=== PATIENT | male | born 1985 | race Caucasian/White ===

== ENCOUNTER → 2023-05-23 | Outpatient (CLI) | payer OTHER ==
[2023-05-23 11:13] LABS: HEMATOCRIT 44.3 % (42.0-52.0); HEMOGLOBIN 15.9 g/dl (13.5-17.5); MEAN CORPUSCULAR HEMOGLOBIN 32.3 pg (27.0-33.0); MEAN CORPUSCULAR HGB CONC 35.9 g/dl (32.0-36.5); PLATELET COUNT, AUTOMATED 201 10^3/uL (150-450); RED BLOOD COUNT 4.92 10^6/uL (4.30-6.10); WHITE BLOOD COUNT 4.7 10^3/uL (4.0-10.0)
[2023-05-23 11:39] LABS: ALBUMIN 4.5 G/DL (3.2-5.2); ALKALINE PHOSPHATASE 61 U/L (46-116); ALT/SGPT 77 U/L (7.0-40); AST/SGOT 57 U/L (<34); BILIRUBIN,DIRECT 0.1 MG/DL (<0.4); BILIRUBIN,TOTAL 0.5 MG/DL (0.3-1.2); BLOOD UREA NITROGEN 13 MG/DL (9-23); CALCIUM LEVEL 9.4 MG/DL (8.5-10.1); CARBON DIOXIDE LEVEL 29 MMOL/L (20-31); CHLORIDE LEVEL 103 MMOL/L (98-107); CREATININE FOR GFR 1.02 MG/DL (0.70-1.30); GLOMERULAR FILTRATION RATE > 60.0 (>60); GLUCOSE, FASTING 93 MG/DL (60-100); POTASSIUM SERUM 4.4 MMOL/L (3.5-5.1); SODIUM LEVEL 141 MMOL/L (136-145); TOTAL PROTEIN 6.9 G/DL (5.7-8.2)
[2023-05-23 11:40] LABS: FREE T4 1.16 NG/DL (0.89-1.76); LUTEINIZING HORMONE 1.4 mIU/ML (1.5-9.3); PROLACTIN 4.08 NG/ML (2.1-17.7)
[2023-05-23 11:41] LABS: ESTRADIOL 22.1 PG/ML (<39.8); FOLLICLE STIMULATING HORMONE 1.6 mIU/ML (1.4-18.1); THYROID STIMULATING HORMONE 1.092 uIU/ML (0.55-4.78)
[2023-05-24 16:09] LABS: HCG SERUM TUMOR MARKER QUANT < 1 mIU/mL (0-3); TESTOSTERONE FREE (DIRECT) 7.8 pg/mL (8.7-25.1)
== END ==
LOC: M LAB 10:08
PROVIDERS: ATTEND Plastic Surgery Surgery of the Hand
DX: N62 Hypertrophy of breast (principal)

== ENCOUNTER 2023-06-05 10:58 | Day surgery (SDC) | payer OTHER ==
[~2023-06-05] VITALS: Ht 180.3 cm; Wt 87.1 kg
[~2023-06-05 10:58] MED LIST: DOXE25CA PO; FEXO60TA99 PO; HYDR50TA70 PO; LEXA1TAB PO; LEXA5TAB13 PO; NS 1,000 ML IV ONE; PROT1TAB2 PO
[2023-06-05] MEDS ORDERED: propofoL 200 MG/20 ML VIAL As Ordered ONE ×2 (13:04→13:16)
[2023-06-05] MEDS ORDERED: fentaNYL 100 MCG/2 ML INJECTION As Ordered ONE (13:04)
[2023-06-05] MEDS ORDERED: LIDOCAINE 2% 100MG/5ML SDV (FOR ANES.) As Ordered ONE (13:04)
[2023-06-05 13:40] VITALS: BP 130/94; O2SAT 97
== END 2023-06-05 13:50 | disposition home or self-care (01) ==
LOC: M OPP 10:58
PROVIDERS: ATTEND Internal Medicine Gastroenterology
DX: R13.10 Dysphagia, unspecified (principal); K22.89 Other specified disease of esophagus; K21.9 Gastro-esophageal reflux disease without esophagitis; Z79.899 Other long term (current) drug therapy
CPT/HCPCS: 43249; J3010

== ENCOUNTER → 2023-06-11 | Outpatient (CLI) | payer OTHER ==
[~2023-06-11] MED LIST changes: -NS 1,000 ML IV ONE
== END ==
LOC: M WHC 13:20
PROVIDERS: ATTEND Physician Assistant
DX: N62 Hypertrophy of breast (principal)

== ENCOUNTER 2023-11-05 08:06 | Observation (INO) | payer OTHER ==
[~2023-11-05] VITALS: Ht 180.3 cm; Wt 87.7 kg
[~2023-11-05 08:06] MED LIST changes: +LEXA1TAB2 PO; +LIDOCAINE 2% 100MG/5ML SDV (FOR ANES.) As Ordered ONE; +MIDAZOLAM INJ 2MG/2ML VIAL As Ordered ONE; +ONDANSETRON 4MG 2ML VIAL As Ordered ONE; +ROCURONIUM BROMIDE 50MG/5ML VIAL As Ordered ONE; +SUGAMMADEX SODIUM 500 MG/5 ML VIAL (BRIDION) As Ordered ONE; +fentaNYL 250 MCG/5 ML INJECTION As Ordered ONE; +propofoL 200 MG/20 ML VIAL As Ordered ONE
[2023-11-05] MEDS ORDERED: LR 1,000 ML IV SCH (08:10)
[2023-11-05] MEDS: EPINEPHrine 1MG/10ML SYRINGE 1.5IN As Ordered ONE (09:05)
[2023-11-05] MEDS ORDERED: dexmedeTOMIDine (4MCG/ML)200MCG/50ML BTL (PRECEDEX) As Ordered ONE (09:18)
[2023-11-05] MEDS ORDERED: ACETAMINOPHEN 1000MG 100ML IV BAG As Ordered ONE (09:47)
[2023-11-05] MEDS ORDERED: HYDROmorphone HCL 2MG/ML 1ML VIAL As Ordered ONE (10:06)
[2023-11-05] MEDS: ceFAZolin SOD 2 GM in IV 1 EA IV ONE (10:20)
[2023-11-05] MEDS: LIDOCAINE W/EPINEPHRINE 1% 20ML VIAL As Ordered ONE (10:39)
[2023-11-05] MEDS: GENTAMICIN SULF 80MG/2ML VIAL As Ordered ONE (10:39)
[2023-11-05] MEDS: EPINEPHrine INJ 1 MG/ML 1ML AMP As Ordered ONE (10:40)
[2023-11-05] MEDS: LIDOCAINE 1% MDV 20ML VIAL As Ordered ONE (10:40)
[2023-11-05] MEDS ORDERED: ONDANSETRON 4MG 2ML VIAL IV PRN ×2 (12:15→12:40)
[2023-11-05] MEDS ORDERED: HYDROMORPHONE HCL 0.5 MG/ 0.5 ML SYRINGE IV PRN (12:15)
[2023-11-05] MEDS ORDERED: fentaNYL 100 MCG/2 ML INJECTION IV PRN (12:15)
[2023-11-05] MEDS ORDERED: oxyCODONE 5MG TAB PO PRN (12:15)
[2023-11-05] MEDS: LR 1,000 ML IV SCH ×2 (12:15→17:55)
[2023-11-05] MEDS ORDERED: ACETAMINOPHEN TAB 650MG DOSE (2X325MG) PO PRN (12:40)
[2023-11-05] MEDS ORDERED: PERCOCET 5MG/325MG TAB PO PRN (12:40)
[2023-11-05 15:30] VITALS: BP 141/86; TEMP 97.5; O2SAT 97
[2023-11-05] MEDS: traMADol 50 MG TAB PO PRN (15:50)
[2023-11-05 16:30] VITALS: BP 136/84; TEMP 97.5; O2SAT 97
[2023-11-05 17:42] VITALS: BP 146/86; TEMP 97.5; O2SAT 96
[2023-11-05] MEDS: ceFAZolin SOD 1 GM in D5W MINI-BAG PLUS 50 ML IV SCH (17:55)
[2023-11-05 18:30] VITALS: BP 143/87; TEMP 97.5; O2SAT 96
[2023-11-05] MEDS: PANTOPRAZOLE 40MG TAB (PROTONIX) PO SCH (20:02)
[2023-11-05 20:30] VITALS: BP 136/82; TEMP 97.5; O2SAT 94
[2023-11-05 21:30] VITALS: BP 134/81; TEMP 97.5; O2SAT 95
[2023-11-06 01:30] VITALS: BP 134/81; TEMP 97.5; O2SAT 95
[2023-11-06 05:30] VITALS: BP 142/79; TEMP 97.5; O2SAT 94
[2023-11-06] MEDS: FEXOFENADINE 60MG TAB PO SCH (09:00)
[2023-11-06] MEDS ORDERED: TRAM50TA2 PO (11:58)
== END 2023-11-06 13:45 | disposition home or self-care (01) ==
LOC: M SDC 08:06 → M MS5PR 12:19
PROVIDERS: ADMIT Plastic Surgery Surgery of the Hand; ATTEND Plastic Surgery Surgery of the Hand
DX: N62 Hypertrophy of breast (principal); F41.9 Anxiety disorder, unspecified; F32.A Depression, unspecified; F43.10 Post-traumatic stress disorder, unspecified; K21.9 Gastro-esophageal reflux disease without esophagitis; M54.9 Dorsalgia, unspecified; Z79.899 Other long term (current) drug therapy
CPT/HCPCS: 19300; 88300; 88305; 96374; 96376; J0131; J0171; J0690; J1100; J1170; J1580; J2250; J2405; J3010

== ENCOUNTER 2024-06-10 12:04 | Day surgery (SDC) | payer OTHER ==
[~2024-06-10] VITALS: Ht 182.9 cm; Wt 86.1 kg
[~2024-06-10 12:04] MED LIST changes: -LIDOCAINE 2% 100MG/5ML SDV (FOR ANES.) As Ordered ONE; -MIDAZOLAM INJ 2MG/2ML VIAL As Ordered ONE; -ONDANSETRON 4MG 2ML VIAL As Ordered ONE; -ROCURONIUM BROMIDE 50MG/5ML VIAL As Ordered ONE; -SUGAMMADEX SODIUM 500 MG/5 ML VIAL (BRIDION) As Ordered ONE; +TEST200I14; +TRAM50TA2 PO; -fentaNYL 250 MCG/5 ML INJECTION As Ordered ONE; -propofoL 200 MG/20 ML VIAL As Ordered ONE
[2024-06-10] MEDS ORDERED: fentaNYL 100 MCG/2 ML INJECTION As Ordered ONE (13:33)
[2024-06-10] MEDS ORDERED: LIDOCAINE 2% 100MG/5ML SDV (FOR ANES.) As Ordered ONE (13:33)
[2024-06-10] MEDS ORDERED: propofoL 200 MG/20 ML VIAL As Ordered ONE (13:33)
[2024-06-10 13:41] VITALS: BP 135/90; O2SAT 95
== END 2024-06-10 13:51 | disposition home or self-care (01) ==
LOC: M OPP 12:04
PROVIDERS: ATTEND Internal Medicine Gastroenterology
DX: K22.2 Esophageal obstruction (principal); R13.10 Dysphagia, unspecified; K44.9 Diaphragmatic hernia without obstruction or gangrene; K21.9 Gastro-esophageal reflux disease without esophagitis; G47.30 Sleep apnea, unspecified; Z79.899 Other long term (current) drug therapy
CPT/HCPCS: 43249; J3010